=== PATIENT | male | born 1955 | race Caucasian/White ===

== ENCOUNTER → 2016-11-17 | Outpatient (CLI) | payer OTHER ==
--- NOTE | 2016-11-17 13:23 | REP ---
Renal ultrasound: The study is technically difficult because of patient body habitus and greater than 300 pounds. The kidneys are normal size. The right kidney measures 12 or 9 x 5.7 x 7.2 cm. Left kidney measures 14.6 before point and a 6.6 cm. Renal cortical echogenicity is normal bilaterally. There is no hydronephrosis on the right on the left. There are multiple bilateral renal cortical cysts. Largest cyst on the right measures 2.2 cm and on the left measures 5.1 cm. No solid masses are identified, however, visualization is for because of body habitus. Bladder ultrasound: The bladder is incompletely distended and cannot be further evaluated. Impression: Multiple bilateral renal cortical cysts. No hydronephrosis. Study is technically difficult because of patient body habitus. Signed by Sergio Reddy MD 11/17/2016 01:14 P
== END ==
LOC: M SMT 11:07
PROVIDERS: ATTEND Urology
DX: Q61.00 Congenital renal cyst, unspecified (principal)

== ENCOUNTER → 2017-05-06 | Outpatient (CLI) | payer OTHER | LOC: M PLARAD 09:26 | DX: M54.12 Radiculopathy, cervical region (principal) ==

== ENCOUNTER → 2018-01-27 | Outpatient (CLI) | payer OTHER ==
[~2018-01-27] MED LIST: ISOVUE-370 76% 100ML VIAL (Q9967) As Ordered ONE
--- NOTE | 2018-01-27 14:01 | REP ---
CT abdomen : CT study without and with IV contrast, dual-phase postcontrast imaging. History: Complex renal cyst. Comparison CT study: November 11, 2015. CT contrast dose: 100 ml of intravenous Isovue-[address] findings: Preliminary digital food preservation scientist radiograph is unremarkable. The lung bases are clear. There is marked diffuse fatty infiltration in the liver. No focal liver mass lesion is seen. Fatty infiltration of the liver is more pronounced than on the prior study. No adrenal lesion is seen. Pancreas is unremarkable. No abnormality is noted in the gallbladder. The spleen is homogeneous in texture and normal in size. No retroperitoneal mass or adenopathy is seen. A few scattered stable retroperitoneal lymph nodes are seen, normal in size. There are multiple bilateral renal cysts. The largest of these is on the left measuring 5.2 cm in greatest diameter. This is felt to be unchanged from the comparison CT study. Several other simple cysts appear a little larger. No renal mass lesion is observed on either side. There is a slightly hyperdense cyst in the upper pole of the left kidney, which measures 2.9 cm in greatest diameter. This measured 2.5 cm previously in 2016. This by my measurement. It is slightly larger. No contrast enhancement is seen on postcontrast images. No other complex appearing cyst is appreciated. No hydronephrosis or calculus is seen. No retroperitoneal mass. Small and large bowel loops are unremarkable. Impression: There is a 2.9 cm hyperdense cyst in the upper pole of the left kidney which is slightly larger than on the prior study. No abnormal contrast enhancement is seen within this. Multiple other bilateral simple cysts are seen. Moderate diffuse fatty infiltration of the liver is noted. Electronically Signed by Ish Woo MD 01/27/2018 04:57 P
== END ==
LOC: M RAD 12:42
PROVIDERS: ATTEND Urology
DX: N28.1 Cyst of kidney, acquired (principal)
CPT/HCPCS: 74170; Q9967

== ENCOUNTER → 2018-06-27 | Outpatient (REF) | payer BC | LOC: M LAB LCGH 14:57 | PROVIDERS: ATTEND Nurse Practitioner Family | DX: C44.612 Basal cell carcinoma of skin of right upper limb, including shoulder (principal); D23.10 Other benign neoplasm of skin of unspecified eyelid, including canthus ==

== ENCOUNTER → 2019-02-01 | Outpatient (CLI) | payer OTHER ==
[~2019-02-01] MED LIST changes: +AMLO25TA PO; +GABA600T4; +HYDR-3719; +HYDR25TAB; +INDO-16; -ISOVUE-370 76% 100ML VIAL (Q9967) As Ordered ONE; +ISOVUE-M 300 61% 15ML VIAL (Q9967) As Ordered ONE; +LEVE1INJ5; +LIDOCAINE 1% MDV 20ML VIAL As Ordered ONE; +LOSA100T50; +MELO15TA28; +METF10004; +METH4PACK; +ONDA4TAB5; +SIMV20TA22; +TAMS1CAP17
--- NOTE | 2019-02-01 09:56 | REP ---
Cervical myelogram, post myelogram CT of the cervical spine: 02/01/2019. Indication: Cervical radiculopathy. Comparison: MRI cervical spine dated 05/06/2017. Technique: Following careful explanation of the procedure, risks and expected out,, informed consent was obtained from the patient. With the patient in the prone position on the fluoroscopy table, the lower back was prepped and draped in normal sterile fashion. An adequate insertion site at L3/L4 was identified and the area was anesthetized with 5 mL of 1% lidocaine. Under fluoroscopic guidance, a 22 gauge by 3 1/2-inch spinal needle was advanced into the thecal sac. 9 ml of Isovue 300 were then administered into the subarachnoid space. Utilizing gravity, the contrast was mobilized to the cervical spine. Spot fluoroscopic images were attempted, however, secondary to body habitus, poor visualization of the contrast was noted. The patient underwent CT evaluation of the cervical spine immediately following the myelogram procedure. No complications were encountered or expected. Findings: There is no acute fracture, subluxation or dislocation. There is straightening of the cervical lordosis. The craniocervical junction is unremarkable. C2/C3: Predominantly right-sided facet and uncovertebral proliferation are present with moderate to severe right neural foraminal narrowing. There is no significant spinal canal narrowing. Significant anterior spurring is present. C3/C4: Right greater than left facet hypertrophy is present with moderate to severe right neural foraminal narrowing. There is mild effacement of the ventral thecal sac. Significant anterior spurring is present. C4/C5: There is no focal disc herniation or significant spinal canal / neural foraminal narrowing. Significant anterior spurring is present. C5/C6: Posterior central/left paracentral disc protrusion is present with minimal flattening of the ventral cord. Bilateral facet hypertrophy is present with mild to moderate neural foraminal narrowing. C6/C7: The patient is status post ACDF at this level without significant spinal canal or neural foraminal narrowing. C7/T1: There is no focal disc herniation or significant spinal canal / neural foraminal narrowing. 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 Electronically Signed by Sreedhar Dey DO 02/01/2019 09:47 A
[2019-02-01 10:45] VITALS: BP 125/64
== END ==
LOC: M IRPRO 07:04
PROVIDERS: ATTEND Orthopaedic Surgery
DX: M54.12 Radiculopathy, cervical region (principal); M50.322 Other cervical disc degeneration at C5-C6 level
CPT/HCPCS: 62302; 72125; Q9967